=== PATIENT | female | born 1975 | race Caucasian/White ===

== ENCOUNTER 2020-08-23 07:24 | Outpatient (CLI) | payer OTHER ==
[2020-08-24 05:17] LABS: SARS-CoV-2 PCR by NAA Not Detected (NotDetected)
--- NOTE | 2020-08-24 07:14 | EKG ---
Test Reason : Blood Pressure : / mmHG Vent. Rate : 089 BPM Atrial Rate : 089 BPM P-R Int : 094 ms QRS Dur : 086 ms QT Int : 368 ms P-R-T Axes : 006 078 047 degrees QTc Int : 447 ms Sinus rhythm with short TN Otherwise normal ECG No previous ECGs available Confirmed by DR. Tommy CHIANG ([id number]) on 08/24/2020 7:14:32 AM Referred By: LISETH Confirmed By:DR. Tommy CHIANG
== END 2020-08-23 07:25 | disposition home or self-care (01) ==
LOC: EDBD → LABBT 07:24
PROVIDERS: ATTEND Neurological Surgery
DX: Z01.818 Encounter for other preprocedural examination (principal); Z20.822 Contact with and (suspected) exposure to COVID-19; M54.16 Radiculopathy, lumbar region; M43.16 Spondylolisthesis, lumbar region
CPT/HCPCS: 87635; 93005; 93010; U0003; U0005

== ENCOUNTER 2020-08-26 06:07 | Day surgery (SDC) | payer OTHER ==
[2020-08-24 10:34] VITALS: BMI 25.1
--- NOTE | 2020-08-26 05:14 | HP ---
HISTORY OF PRESENT ILLNESS: Ms. Quinn is a very pleasant 44-year-old woman, known to me for prior evaluation of lower back pain in 2018 and 2019, who was ultimately given a recommendation for L5-S1 fusion, but in July of this year, was diagnosed with COVID and was hospitalized. She states in the last 6 months, her neck has started to bother her. She reports bilateral numbness in her hands, but this is improved now with Lyrica. MRI from the [facility] last year, which reveals lumbar degenerative disk disease at L5-S1 that most certainly fits the pain that she is having. PHYSICAL EXAMINATION: Normal gait. Minimally antalgic. She has excellent strength in bilateral lower extremity negative straight leg raise bilaterally. PAST MEDICAL HISTORY: Significant for osteoarthritis, asthma, seasonal allergies, chronic pain, headaches, and hypertension. PAST SURGICAL HISTORY: Breast augmentation bilaterally, bunionectomy, surgery. MEDICATIONS: 1. Etodolac. 2. Pregabalin. 3. Cyclobenzaprine. 4. Amlodipine. 5. Methocarbamol. 6. Percocet. ALLERGIES: TO TORADOL. ASSESSMENT: Lumbar back pain. PLAN: Dr. De Jesus met with the patient, reviewed imaging, advocated for L5-S1 facetectomy and fusion. He explained to the patient the risks, benefits, alternatives to the procedure. Patient expressed understanding and elected to move forward with surgery as discussed. I do believe the patient is mentally competent and capable of making medical decisions for herself. We will move forward with surgery as planned. Job ID: [id number]
[2020-08-26] MEDS ORDERED: Morphine 4 MG/ML VIAL ONE (07:39)
[2020-08-26] MEDS ORDERED: Fentanyl 100 MCG/2 ML VIAL ONE ×5 (08:19→11:37)
[2020-08-26] MEDS ORDERED: Midazolam HCl 2 mg/2 ml Vial ONE (08:19)
[2020-08-26] MEDS ORDERED: EPINEPHrine 1 MG/ML AMP ONE (08:20)
[2020-08-26] MEDS ORDERED: Bupivacaine PF 0.5% 30 ML VIAL ONE (08:20)
[2020-08-26] MEDS ORDERED: PHENYLEPHRINE-NS 100 MCG/ML 10 ML SYRINGE ONE (08:40)
[2020-08-26] MEDS ORDERED: Rocuronium Bromide 10 MG/ML (10ML VIAL) ONE (08:40)
[2020-08-26] MEDS ORDERED: diphenhydrAMINE 50 MG/ML VIAL ONE (08:40)
[2020-08-26] MEDS ORDERED: Glycopyrrolate 0.2 MG/ML 5 ML SYRINGE ONE (08:40)
[2020-08-26] MEDS ORDERED: Dexamethasone 20 MG/5 ML VIAL ONE (08:40)
[2020-08-26] MEDS ORDERED: Ondansetron PF 4 MG/2 ML Vial ONE (08:40)
[2020-08-26] MEDS ORDERED: Lidocaine 1% PF 5 ML VIAL ONE (08:40)
[2020-08-26] MEDS ORDERED: PROPOFOL 200 MG/20 ML VIAL ONE (08:40)
[2020-08-26] MEDS ORDERED: HYDROcodone/Acetaminophen 10/325 mg Tablet ONE (11:35)
[2020-08-26] MEDS ORDERED: Morphine 2 MG/ML VIAL ONE (12:49)
[2020-08-26] MEDS ORDERED: oxyCODONE/Acetaminophen 5 mg/325 mg Tablet PO SCH (14:15)
--- NOTE | 2020-08-29 13:03 | OP ---
DATE OF PROCEDURE: 08/26/2020 PUBLIC TRANSIT SPECIALIST: Rajan Hou PA-C. INDICATION: Pain. DIAGNOSES: Degenerative lumbar spine disease, back pain, and lumbar radiculopathy. PROCEDURES PERFORMED: L5-S1 posterolateral instrumented fusion, placement of allograft, placement of autograft. ANESTHESIA: General. DESCRIPTION OF PROCEDURE: The patient was brought into the operating room and placed under general anesthesia. She was flipped from the supine to prone position on the operating room table. A linear incision was planned over the L5-S1 segment. After prepping and draping and after an appropriate preoperative pause, the incision was created. The soft tissues were swept away from midline. A self-retaining retractor was placed and a C-arm image was obtained to confirm the appropriate levels. Bilateral hemilaminectomies and bilateral facetectomies were performed at L5-S1 in order to decompress the lateral recesses and expose the L5-S1 pedicles. Pedicle screws were then placed at L5-S1 bilaterally with the aid of C-arm fluoroscopy. An intraoperative 3D CT scan was then performed to confirm placement of hardware. Rods were then placed across the screw heads and final tightened with set screws. Allograft and autograft material were placed within the lateral confines of the instrumentation construct. The wound was then irrigated. Hemostasis was maintained throughout. The wound was then closed in anatomic layers, and a pressure dressing was applied. There were no known procedural complications. Job ID: [id number]
== END 2020-08-26 15:58 | disposition home or self-care (01) ==
LOC: SDC 06:07 → EDBD 14:00 → SDC 15:58
PROVIDERS: ATTEND Neurological Surgery
PROC: 0SG30AJ Fusion of Lumbosacral Joint with Interbody Fusion Device, Posterior Approach, Anterior Column, Open Approach (ICD-10-PCS; principal; 2020-08-26)
DX: M51.16 Intervertebral disc disorders with radiculopathy, lumbar region (principal); M43.16 Spondylolisthesis, lumbar region; J45.909 Unspecified asthma, uncomplicated; I10 Essential (primary) hypertension; G43.909 Migraine, unspecified, not intractable, without status migrainosus; G89.4 Chronic pain syndrome; F17.200 Nicotine dependence, unspecified, uncomplicated; M19.90 Unspecified osteoarthritis, unspecified site; Z79.51 Long term (current) use of inhaled steroids; Z79.899 Other long term (current) drug therapy; Z86.16 Personal history of COVID-19; Z88.6 Allergy status to analgesic agent
CPT/HCPCS: 76000; C1713; J0171; J0690; J1100; J1200; J2250; J2270; J2405; J2704; J3010; S0020